=== PATIENT | female | born 1960 | race Caucasian/White ===

== ENCOUNTER → 2023-11-22 09:08 | Outpatient (REF) | payer OTHER, SELFPAY | LOC: HWRAD 09:08 | PROVIDERS: ATTENDING PHYSICIAN Nurse Practitioner Family | DX: Z00.00 Encounter for general adult medical examination without abnormal findings (principal); Z13.820 Encounter for screening for osteoporosis; M25.561 Pain in right knee | CPT/HCPCS: 73564; 77080 ==

== ENCOUNTER → 2024-02-10 06:59 | Outpatient (REF) | payer OTHER, SELFPAY | LOC: PAVMRI 06:59 | PROVIDERS: ATTENDING PHYSICIAN Orthopaedic Surgery; FAMILY PHYSICIAN Nurse Practitioner Family | DX: M54.50 Low back pain, unspecified (principal); M25.561 Pain in right knee | CPT/HCPCS: 72148; 73721 ==

== ENCOUNTER → 2024-06-16 14:01 | Outpatient (REF) | payer OTHER, SELFPAY | LOC: WDC 14:01 | PROVIDERS: ATTENDING PHYSICIAN Nurse Practitioner Family | DX: Z12.31 Encounter for screening mammogram for malignant neoplasm of breast (principal) | CPT/HCPCS: 77063; 77067 ==

== ENCOUNTER → 2024-08-21 09:08 | Outpatient (REF) | payer OTHER, SELFPAY | LOC: HWRAD 09:08 | PROVIDERS: ATTENDING PHYSICIAN Specialist; FAMILY PHYSICIAN Family Medicine | DX: C67.9 Malignant neoplasm of bladder, unspecified (principal) | CPT/HCPCS: 74176 ==

== ENCOUNTER 2024-08-24 05:53 | Day surgery (SDC) | payer OTHER, SELFPAY ==
[2024-08-22 12:21] VITALS: BMI 28.0
--- NOTE | 2024-08-22 14:51 | PTCARENOTE ---
Abnormal EKG on 08/22/24. Dr. Chavarria aware. No intervention needed.
[2024-08-24] VITALS (11 sets, daily range): BP systolic 109–134; BP diastolic 58–91; BMI 28.0
[2024-08-24] MEDS: SYRINGE NON-PUMP 50 ML IRRIG ×2 (08:25→08:26)
[2024-08-24] MEDS: SYRINGE NON-PUMP 50 MG IRRIG ×2 (08:25→08:26)
[2024-08-24] MEDS: VALIUM INJECTION 2.5 MG IV (08:43)
[2024-08-24] MEDS: DETROL LA 4 MG PO (08:56)
[2024-08-24] MEDS: SUBLIMAZE 25 MCG IV ×2 (09:10→09:35)
--- NOTE | 2024-08-24 09:19 | SUR.PHASEI ---
patient in pacu post op TURBT - arrived with airway in place, removed when awake, alert and oriented, though repetative, Dr Segovia here at 0826- Chemo verified and instilled in bladder by Dr Segovia, Schmitz bag elevated to IV pole for dwell of
90minutes. Received orders for valium and detrol - when verified by pharmacy given for toleration of dwell. slept briefy, then c/o discomfort and pressure increasing - medicated with fentanyl
--- NOTE | 2024-08-24 10:23 | SUR.PHASEI ---
chemo and urine drained at 1000. much more comfortable, reviewed cobb teaching and chemo precautions. discharge to [facility] with cobb
== END 2024-08-24 11:10 | disposition home or self-care (01) ==
LOC: SDS 05:53
PROVIDERS: ATTENDING PHYSICIAN Specialist; FAMILY PHYSICIAN Family Medicine
DX: C67.9 Malignant neoplasm of bladder, unspecified (principal)
CPT/HCPCS: 52234; 51720; C9738; 88307; 36415; 74420; 76000; 88341; 88342; 93005; A9589; C1758

== ENCOUNTER 2025-02-02 06:06 | Day surgery (SDC) | payer OTHER, SELFPAY ==
[2025-01-22 11:13] LABS: Hematocrit 42.7 % (37.0-47.0); Hemoglobin 14.3 g/dL (12.0-16.0); Mean Corp Hgb Conc. 33.5 g/dL (33.0-37.0); Mean Corpuscular Volume 92.6 fL (81.0-99.0); Mean Platelet Volume 9.3 fL (7.4-10.4); Platelet Count 362 10^3/uL (130-400); Red Blood Cell Count 4.61 10^6/uL (4.20-5.40); Red Cell Dist. Width 12.4 % (11.5-14.5); White Blood Cell Count 7.5 10^3/uL (4.8-10.8)
[2025-01-22 12:10] LABS: Blood Urea Nitrogen 18 mg/dl (7-17); Calcium 9.4 mg/dl (8.4-10.2); Carbon Dioxide 27 mmol/L (22-30); Chloride 103 mmol/L (98-107); Glucose 92 mg/dl (70-99); Potassium 4.4 mmol/L (3.5-5.1); Sodium 139 mmol/L (135-145); eGFR > 60.00
[2025-01-22 13:23] VITALS: BMI 27.4
[2025-02-02] VITALS (8 sets, daily range): BP systolic 116–169; BP diastolic 63–80; BMI 27.4
[2025-02-02] MEDS: CYSVIEW KIT 100 MG INTRAVES (06:58)
[2025-02-02] MEDS: NORMOSOL-R/PLASMALYTE-A 1000 IV (07:16)
== END 2025-02-02 09:50 | disposition home or self-care (01) ==
LOC: SDS 06:06
PROVIDERS: ATTENDING PHYSICIAN Specialist; FAMILY PHYSICIAN Family Medicine
DX: N32.89 Other specified disorders of bladder (principal); C67.9 Malignant neoplasm of bladder, unspecified; Z85.51 Personal history of malignant neoplasm of bladder; N30.10 Interstitial cystitis (chronic) without hematuria
CPT/HCPCS: 52204; 88305; 36415; 80048; 85027; A9589

== ENCOUNTER → 2025-02-13 09:55 | Outpatient (REF) | payer OTHER, SELFPAY | LOC: HWRAD 09:55 | PROVIDERS: ATTENDING PHYSICIAN Internal Medicine Gastroenterology; FAMILY PHYSICIAN Family Medicine | DX: R19.7 Diarrhea, unspecified (principal) | CPT/HCPCS: 74018 ==

== ENCOUNTER → 2025-06-20 11:25 | Outpatient (REF) | payer OTHER, SELFPAY | LOC: WDC 11:25 | PROVIDERS: ATTENDING PHYSICIAN Obstetrics & Gynecology; FAMILY PHYSICIAN Family Medicine | DX: Z12.31 Encounter for screening mammogram for malignant neoplasm of breast (principal) | CPT/HCPCS: 77063; 77067 ==

== ENCOUNTER → 2025-07-10 10:15 | Outpatient (REF) | payer OTHER, SELFPAY | LOC: WDC 10:15 | PROVIDERS: ATTENDING PHYSICIAN Obstetrics & Gynecology; FAMILY PHYSICIAN Family Medicine | DX: R92.2 Inconclusive mammogram (principal) | CPT/HCPCS: 76641 ==